=== PATIENT | female | born 1995 | race Caucasian/White ===

== ENCOUNTER 2017-10-21 15:01 | Emergency (ER) | payer BC ==
[~2017-10-21] VITALS: Ht 162.6 cm; Wt 60.9 kg
[2017-10-21 15:04] VITALS: TEMP 36.8; Ht 162.6 cm; Wt 60.9 kg
[2017-10-21] MEDS ORDERED: BCPILLS PO (15:36)
--- NOTE | 2017-10-21 15:42 | EMERGENCY ROOM VISIT NOTE ---
History First contact with patient: 15:08 Chief Complaint: HEAD INJURY (MINOR) Stated Complaint: HIT HEAD LAST NIGHT, VOMITED, CONCUSSION SX History of Present Illness The patient is a 22 year old female who presents to the Emergency Room with complaints of a closed head injury which occurred last night. The patient reports that she was walking down a ladder and was about 4 rungs up a ladder when she fell, striking the left posterior head on a step of the ladder. She does admit to drinking alcohol last night, but states that she only had 4 beers. There was no loss of consciousness at the time of the head injury. She does report that she started vomiting approximately 2 hours after the head injury. She had multiple episodes of vomiting through the night, but states that her nausea and vomiting have resolved this morning. She has some mild dull pain in the back of the head rated a 5/10. She used a cool compress on the head but has not taken any medications for pain. She denies any changes in vision, numbness, weakness, slurred speech. She does report a history of 3 concussions in the past but has never had vomiting with a concussion. Review of Systems A complete 10 point review of systems was reviewed with the patient with pertinent positives and negatives as per history of present illness. All else were negative. Past Medical/Surgical History Medical Problems: (1) No significant active problems Surgical Problems: (1) No significant past surgical history Social History Smoking Status: Never Smoker Alcohol Use: occasionally Housing Status: lives with roommate Occupation Status: [employer] Current/Historical Medications Scheduled Control Pills ( Control Pills), 1 TAB PO DAILY Physical Exam Vital Signs Date Time Temp Pulse Resp B/P (MAP) Pulse Ox O2 Delivery O2 Flow Rate FiO2 10/21/17 16:38 71 16 119/74 99 10/21/17 15:06 16 95 10/21/17 15:04 36.8 92 17 120/75 95 Room Air Physical Exam VITALS: Vitals are noted on the nurse's note and reviewed by myself. Vital signs stable. GENERAL: This is a 22-year-old female, in no acute distress, nondiaphoretic, well-developed well-nourished. SKIN: The skin was without erythema, edema, or bruising. HEAD: Normocephalic atraumatic. EARS: External auditory canals clear, tympanic membranes pearly castellano without erythema or effusion bilaterally. No hemotympanum. EYES: Pupils equal round and reactive to light and accommodation. Extraocular movements intact. NECK: Supple without nuchal rigidity. Cervical spine is nontender. HEART: Regular rate and rhythm without murmurs gallops or rubs. MUSCULOSKELETAL: Strength 5/5 throughout. NEURO: Patient was alert and oriented to person place and time. Normal sensation. No focal neurological deficits. Medical Decision & Procedures ER Provider Diagnostic Interpretation: CT SCAN OF THE BRAIN WITHOUT IV CONTRAST FINDINGS: Brain parenchyma: The brain parenchyma is normal in appearance. There is no hemorrhage, mass effect, or evidence of acute territorial ischemia by CT criteria. Castellano-white matter is preserved. No extra-axial fluid collection is seen. Ventricles, sulci, cisterns: Normal in configuration. Intracranial vasculature: The visualized intracranial vasculature at the skull base is normal in appearance. Calvarium: There is no depressed calvarial fracture. Sinuses and mastoids: The visualized paranasal sinuses are clear. The mastoid air cells are well pneumatized. Orbits: The bony orbits are grossly intact. IMPRESSION: No acute intracranial abnormality. Medical Decision Differential diagnosis includes subdural hematoma, epidural hematoma, subarachnoid hemorrhage, concussion, skull fracture, among others. The patient is a 22-year-old female who presents today complaining of a closed head injury which occurred last night. CT scan was performed due to patient's complaint of vomiting and showed no acute intracranial abnormalities. Patient was reassured. Head injury precautions were reviewed with the patient. She will follow-up with [facility] as needed. She verbalized understanding of my assessment and treatment plan and was discharged home in good condition. Head Trauma GCS Score: 15 Medication Reconcilliation Current Medication List: was personally reviewed by ne Blood Pressure Screening Patient's blood pressure: Normal blood pressure Impression Primary Impression: Closed head injury Departure Information Dispostion Home / Self-Care Condition GOOD Referrals No Doctor, Assigned (PCP) Patient Instructions My [facility] Additional Instructions You have been treated in the Emergency Department for a Closed Head Injury. CT Scan of your head/brain demonstrated no acute bleeding or other abnormalities. This does not completely rule out the risk for future damage to the brain. For pain control, you can use the following [id number] medicines (if >12 yo): - Regular strength (325mg/tab) Tylenol (acetaminophen) 2 tabs every 4-6 hours as needed. Do not exceed 12 tablets in a 24 hour period. Avoid taking more than 4 grams (4000 mg) of Tylenol per day. This includes any other sources of acetaminophen you may take on a regular basis. - Regular strength (200 mg/tab) Advil (ibuprofen) 1-2 tabs every 4-6 hours as needed. Do not exceed a dose of 3200 mg per day. You should relax in a quiet, dark place for the rest of the day. Avoid any possible triggers including: cigarette smoke, caffeine, nicotine, chocolate, wine, beer, loud noises or music, or bright lights. Follow-up with [facility] by the end of the week if you have any persistent headaches, nausea, difficulty focusing or other symptoms. Return to the Emergency Department if your current symptoms worsen despite treatment course outlined above, or if you develop any of the following symptoms : intractable pain despite aforementioned treatment course, visual disturbances , loss of vision, unilateral weakness or facial drooping, slurring of speech, loss of coordination, or loss of consciousness. Problem Qualifiers Primary Impression: Closed head injury Encounter type: initial encounter Qualified Codes: S09.90XA - Unspecified injury of head, initial encounter
--- NOTE | 2017-10-21 16:04 | DIAGNOSTIC IMAGING REPORT ---
CT SCAN OF THE BRAIN WITHOUT IV CONTRAST CLINICAL HISTORY: Trauma. Fall from ladder. COMPARISON STUDY: No priors. TECHNIQUE: Unenhanced axial CT scan of the brain is performed from the vertex to the skull base. A dose lowering technique was utilized adhering to the principles of ALARA. CT DOSE: 537.48 mGy.cm FINDINGS: Brain parenchyma: The brain parenchyma is normal in appearance. There is no hemorrhage, mass effect, or evidence of acute territorial ischemia by CT criteria. Castellano-white matter is preserved. No extra-axial fluid collection is seen. Ventricles, sulci, cisterns: Normal in configuration. Intracranial vasculature: The visualized intracranial vasculature at the skull base is normal in appearance. Calvarium: There is no depressed calvarial fracture. Sinuses and mastoids: The visualized paranasal sinuses are clear. The mastoid air cells are well pneumatized. Orbits: The bony orbits are grossly intact. IMPRESSION: No acute intracranial abnormality. Electronically signed by: Andi Longo M.D. 10/21/2017 4:03 PM Dictated Date/Time: 10/21/2017 4:01 PM
[2017-10-21 16:38] VITALS: BP 119/74; PULSE 71; O2SAT 99
== END 2017-10-21 16:39 | disposition home or self-care (01) ==
LOC: C.EDB 15:02 → C.EDD 16:39
DX: S09.90XA Unspecified injury of head, initial encounter (principal); W11.XXXA Fall on and from ladder, initial encounter; Y92.9 Unspecified place or not applicable; Z79.3 Long term (current) use of hormonal contraceptives